=== PATIENT | female | born 1980 | race Caucasian/White ===

== ENCOUNTER 2019-04-26 15:35 | Emergency (ER) | payer MEDICAID ==
[~2019-04-26] VITALS: Ht 175.3 cm; Wt 90.0 kg
[2019-04-26 15:37] VITALS: BP 99/65
[2019-04-26] MEDS ORDERED: ketorolac tromethamine 15mg/ml inj. IM ONE (16:20)
[2019-04-26] MEDS ORDERED: NAPR-56 PO (16:22)
== END 2019-04-26 16:42 | disposition home or self-care (01) ==
LOC: ER 15:35
DX: S96.811A Strain of other specified muscles and tendons at ankle and foot level, right foot, initial encounter (principal); Z79.899 Other long term (current) drug therapy; W17.89XA Other fall from one level to another, initial encounter; Y93.89 Activity, other specified; Y92.89 Other specified places as the place of occurrence of the external cause; Y99.8 Other external cause status
CPT/HCPCS: 29515; 73610; 73630; 96372; 99284; J1885